=== PATIENT | female | born 1995 | race African-American/Black ===

== ENCOUNTER 2017-11-02 16:36 | Emergency (ER) | payer MEDICAID ==
[~2017-11-02] VITALS: Ht 152.4 cm; Wt 49.9 kg
[2017-11-02 17:24] LABS: BILIRUBIN, URINE NEGATIVE (NEGATIVE); COLOR,URINE PALE YELLOW; GLUCOSE, URINE (UA) NEGATIVE (NEGATIVE); KETONES,URINE NEGATIVE (NEGATIVE); LEUKOCYTE ESTERASE ,URINE 3+ (NEGATIVE); NITRITE,URINE POSITIVE (NEGATIVE); PH,URINE 6 (4.5-8.0); PROTEIN,URINE 2+ (NEGATIVE); UROBILINOGEN,URINE NORMAL MG/DL (0.0-1.0)
[2017-11-02 17:28] LABS: APPEARANCE,URINE SLIGHTLY CLOUDY
--- NOTE | 2017-11-02 17:46 | Emergency Room Report ---
History of Present Illness General Chief Complaint: Female Urogenital Problems Source: Patient Present Illness HPI 22-year-old female patient presents ER complaining of pain with urination for the past 2 days. Patient also reports spotting during this time. Reports that she had a at [facility] a few weeks ago has been spotting since that time. States that they put her on Mirena. Reports that it was her second , first was born at 37 weeks, patient states she had hyperemesis gravidarum and gestational diabetes during , states no longer has diabetes. Denies history of preeclampsia. Denies vomiting or fever Reports using panty liners. Reports that she was told not to use a tampon but did for a few days, states she isn't longer using tampons. Denies passage of clots. Denies discharge. Denies fever, chest pain, shortness breath, vomiting , abdominal pain, flank pain. Denies rash or other acute symptoms. Reports hx of anemia, denies syncopal episodes or dizziness. ports history of anemia, states she is taking iron supplements. Allergies: Coded Allergies: No Known Allergies (Unverified , 11/02/17) Patient History Past Medical History: see triage record Last Menstrual Period: 08/09/17 Now: No : 2 Para: 1 Reviewed Nursing Documentation: PMH: Agreed; PSxH: Agreed Nursing Documentation-PMH Past Medical History: No History, Except For Hx Cardiac Problems: No - ENDOMITRIOSIS Review of Systems All Other Systems: negative except mentioned in HPI Physical Exam Vital Signs Date Time Temp Pulse Resp B/P (MAP) Pulse Ox O2 Delivery O2 Flow Rate FiO2 11/02/17 16:42 98.2 83 16 96/63 100 Room Air 98.2 Sp02 EP Interpretation: reviewed, normal General Appearance: well appearing, no apparent distress, alert, GCS 15, non- toxic Head: normocephalic, atraumatic Eyes: bilateral eye normal inspection, bilateral eye PERRL ENT: hearing grossly normal, normal pharynx, no angioedema, normal voice, uvula midline, moist mucus membranes Neck: full range of motion Respiratory: lungs clear, normal breath sounds, no rhonchi, no respiratory distress, no accessory muscle use, no wheezing, speaking full sentences Cardiovascular #1: regular rate, rhythm, no edema Gastrointestinal: non tender, soft, no mass, non-distended, no guarding, no rebound Genitourinary: no CVA tenderness, cervix normal, ext genitalia/vag normal, no vertebral tenderness, os closed, other - negative cervical motion tenderness, IUD strings noted Musculoskeletal: back normal, digits/nails normal, gait/station normal, normal range of motion, non-tender, no calf tenderness Neurologic: alert, oriented x3, responsive, motor strength/tone normal, sensory intact Psychiatric: mood/affect normal Skin: no rash Medical Decision Making PA Attestation Dr. Alford is my supervising Physician whom patient management has been discussed with. Diagnostic Impression: Primary Impression: Urinary tract infection Additional Impressions: Abnormal uterine bleeding Ovarian cyst ER Course Pt presents to ED c/o dysuria and spotting. DDX considered but are not limited to incomplete , ectopic, UTI, no metritis, fibroids, abnormal uterine bleeding. VITAL SIGNS are WNL, patient is afebrile. blood pressure slightly decreased, we' ll continue to monitor. We'll order labs and fluids. Pelvic exam: cervical os closed, no retained products of conception, no active bleeding, IUD strings identified Ordered CBC, CMP, Type and Screen, UA, UCG, bHCG, IV NS and pelvic US. Tylenol for pain control. ER COURSE: physical examination, no elbow tenderness to palpation, no flank pain, cap refill less than 2 seconds, normal skin turgor, no circumoral pallor Patient resting comfortably, in no acute distress, nontoxic appearing. Patient reports pain symptoms resolved since onset. CBC and CMP unremarkable, no elevation WBCs, no anemia noted UA results positive for nitrites, wbc's and bacteria, likely UTI, will provide antibiotic treatment. Urine negative BetaHCG 17, follow-up with [facility] and have repeat labs and imaging done as necessary, continue to monitor to make sure the hCG levels decrease. Slight elevation may be due to recent history of and . US negative. Rh antibody negative Blood type A positive, instructed patient to followup with [facility] to find out results of blood exam, patient states she does not want to stay to await type and screen results. Coag studies within normal limits. Discussed results with patient. Followup with PCP for further treatment and referral. Informed patient to take Tylenol only for pain symptoms, do not take Motrin/ Ibuprofen. F/u with OBGYN in 48 hours, need serial Beta HCG and US Patient nontoxic appearing, in no acute distress, face timing family on her phone, laughing and smiling, requesting to be discharged. Patient Ok for discharge to home. DISCHARGE: -Rx provided for Keflex -Rx provided for Pyridium, SE turns urine orange. At this time pt. is stable for d/c to home. At this time patient is resting comfortably, in no acute distress, nontoxic appearing, smiling and talking without difficulty. Will provide printed patient care instructions, and any necessary prescriptions. Patient instructed to follow with OBGYN for further treatment and referral as needed. Care plan and follow up instructions have been discussed with the patient prior to discharge. Patient reports understanding and agreement to treatment plan. Patient questions asked and answered. ER precautions given, patient instructed to return to ER immediately for any new or worsening of symptoms. - Please note that this Emergency Department Report was dictated using [employer] representative technology software, occasionally this can lead to erroneous entry secondary to interpretation by the dictation equipment. Labs Test 11/02/17 16:56 11/02/17 17:55 Urine Color Pale yellow Urine Appearance Slightly cloudy Urine pH 6 (4.5-8.0) Urine Specific [place] 1.015 (1.005-1.035) Urine Protein 2+ (NEGATIVE) Urine Glucose (UA) Negative (NEGATIVE) Urine Ketones Negative (NEGATIVE) Urine Occult Blood 4+ (NEGATIVE) Urine Nitrite Positive (NEGATIVE) Urine Bilirubin Negative (NEGATIVE) Urine Urobilinogen Normal MG/DL (0.0-1.0) Urine Leukocyte Esterase 3+ (NEGATIVE) Urine RBC 5-10 /HPF (0 - 2) Urine WBC 20-30 /HPF (0 - 2) Urine Squamous Epithelial Cells Few /LPF (NONE/OCC) Urine Bacteria Moderate /HPF (NONE) Urine HCG, Qualitative Negative (NEGATIVE) White Blood Count 6.3 K/UL (4.8-10.8) Red Blood Count 4.14 M/UL (4.20-5.40) Hemoglobin 12.7 G/DL (12.0-16.0) Hematocrit 37.1 % (37.0-47.0) Mean Corpuscular Volume 90 FL (80-99) Mean Corpuscular Hemoglobin 30.7 PG (27.0-31.0) Mean Corpuscular Hemoglobin Concent 34.3 G/DL (32.0-36.0) Red Cell Distribution Width 11.4 % (11.6-14.8) Platelet Count 197 K/UL (150-450) Mean Platelet Volume 8.3 FL (6.5-10.1) Neutrophils (%) (Auto) 60.6 % (45.0-75.0) Lymphocytes (%) (Auto) 26.1 % (20.0-45.0) Monocytes (%) (Auto) 8.9 % (1.0-10.0) Eosinophils (%) (Auto) 3.2 % (0.0-3.0) Basophils (%) (Auto) 1.3 % (0.0-2.0) Prothrombin Time 10.0 SEC (9.30-11.50) Prothromb Time International Ratio 0.9 (0.9-1.1) Activated Partial Thromboplast Time 29 SEC (23-33) Sodium Level 138 MMOL/L (136-145) Potassium Level 4.0 MMOL/L (3.5-5.1) Chloride Level 104 MMOL/L (98-107) Carbon Dioxide Level 25 MMOL/L (21-32) Anion Gap 9 mmol/L (5-15) Blood Urea Nitrogen 16 mg/dL (7-18) Creatinine 0.7 MG/DL (0.55-1.30) Estimat Glomerular Filtration Rate > 60 mL/min (>60) Glucose Level 83 MG/DL (74-106) Calcium Level 9.3 MG/DL (8.5-10.1) Total Bilirubin 0.3 MG/DL (0.2-1.0) Aspartate Amino Transf (AST/SGOT) 15 U/L (15-37) Alanine Aminotransferase (ALT/SGPT) 19 U/L (12-78) Alkaline Phosphatase 50 U/L (46-116) Total Protein 7.9 G/DL (6.4-8.2) Albumin 4.1 G/DL (3.4-5.0) Globulin 3.8 g/dL Albumin/Globulin Ratio 1.1 (1.0-2.7) Lipase 139 U/L (73-393) CT/MRI/US Diagnostic Results CT/MRI/US Diagnostic Results : Imaging Test Ordered: pelvic US Impression per US aircraft maintenance technician: ovarian cyst IUD noted no torsion no free fluid no other findings Last Vital Signs Date Time Temp Pulse Resp B/P (MAP) Pulse Ox O2 Delivery O2 Flow Rate FiO2 11/02/17 16:42 98.2 83 16 96/63 100 Room Air 98.2 Disposition: HOME, SELF-CARE Condition: Stable Scripts Phenazopyridine Hcl* (PYRIDIUM*) 100 Mg Tablet 100 MG ORAL THREE TIMES A DAY for 3 Days, #9 TAB Prov: Killian Palacios 11/02/17 Cephalexin* (KEFLEX*) 500 Mg Capsule 500 MG ORAL EVERY 12 HOURS, #14 CAP 0 Refills Prov: Killian Palacios 11/02/17 Referrals: NOT CHOSEN IPA/MD,REFERRING (PCP) Patient Instructions: Abnormal Uterine Bleeding, [id number], Ovarian Cyst, Urinary Tract Infection Additional Instructions: Followup with primary care provider and followup with OBGYN for further evaluation and treatment. Drink plenty of fluids. Take medications as directed. Continue to take iron supplements as previously instructed. Pyridium has SE of turning urine orange. Patient questions asked and answered. ER precautions given, patient instructed to return to ER immediately for any new or worsening of symptoms including but not limited to syncope, dizziness, intractable vomiting, chest pain, shortness of breath, intractable abdominal pain. HCG level 17, followup with OBGYN for repeat labs and imaging to monitor HCG levels and make sure they continue to decrease. Contact hospital for blood type results. Killian Palacios Nov 02, 2017 17:46
[2017-11-02 18:02] VITALS: BP 100/66
[2017-11-02 18:20] LABS: ANION GAP 9 mmol/L (5-15); BLOOD UREA NITROGEN 16 mg/dL (7-18); CALCIUM 9.3 MG/DL (8.5-10.1); CARBON DIOXIDE 25 MMOL/L (21-32); CHLORIDE 104 MMOL/L (98-107); CREATININE 0.7 MG/DL (0.55-1.30); SODIUM 138 MMOL/L (136-145)
[2017-11-02 18:22] LABS: BASOPHILS % (AUTO) 1.3 % (0.0-2.0); EOSINOPHILS % (AUTO) 3.2 % (0.0-3.0); HEMATOCRIT 37.1 % (37.0-47.0); HEMOGLOBIN 12.7 G/DL (12.0-16.0); LYMPHOCYTES % (AUTO) 26.1 % (20.0-45.0); MEAN CORPUSCULAR VOLUME 90 FL (80-99); MONOCYTES % (AUTO) 8.9 % (1.0-10.0); NEUTROPHILS % (AUTO) 60.6 % (45.0-75.0); PLATELET COUNT 197 K/UL (150-450); RED BLOOD COUNT 4.14 M/UL (4.20-5.40); RED CELL DISTRIBUTION WIDTH 11.4 % (11.6-14.8); WHITE BLOOD COUNT 6.3 K/UL (4.8-10.8)
[2017-11-02 18:26] LABS: ALANINE AMINOTRANSFERASE 19 U/L (12-78); ALBUMIN 4.1 G/DL (3.4-5.0); ALBUMIN/GLOBULIN RATIO 1.1 (1.0-2.7); ALKALINE PHOSPHATASE 50 U/L (46-116); ASPARTATE AMINO TRANSFERASE 15 U/L (15-37); BILIRUBIN,TOTAL 0.3 MG/DL (0.2-1.0); INR 0.9 (0.9-1.1)
--- NOTE | 2017-11-02 19:20 | Diagnostic Imaging Report ---
EXAM: US Pelvis Complete, Transabdominal US Pelvis, Transvaginal CLINICAL HISTORY: PAIN TECHNIQUE: Real-time transabdominal and transvaginal pelvic ultrasound (complete) with image documentation. Transvaginal imaging was used for better evaluation of the endometrium and adnexa. COMPARISON: No relevant prior studies available. FINDINGS: Uterus/cervix: Uterus 8.3 x 6.7 x 4.6 cm. Endometrium 5 mm. IUD present. No myometrial mass. Right ovary: Right ovary 3.6 x 3.3 x 1.7 cm. Normal blood flow. Left ovary: Left ovary 3.9 x 2.4 x 1.8 cm. Left adnexal 1.9 cm simple cyst/follicle. Normal blood flow. Free fluid: No free fluid. Bladder: Unremarkable as visualized. IMPRESSION: No ovarian torsion.
[2017-11-02] MEDS ORDERED: PHENAZOPYRIDIN100 MG ORAL (19:21)
[2017-11-02] MEDS ORDERED: CEPHALEXIN500 MG ORAL (19:21)
[2017-11-02 20:02] VITALS: BP 100/66
== END 2017-11-02 20:03 | disposition home or self-care (01) ==
LOC: EMR 17:20
DX: N39.0 Urinary tract infection, site not specified (principal); N93.9 Abnormal uterine and vaginal bleeding, unspecified; N83.209 Unspecified ovarian cyst, unspecified side
CPT/HCPCS: 36415; 76830; 76856; 80053; 81003; 81025; 83690; 84702; 85025; 85610; 85730; 86850; 86900; 86901; 87086; 87181; 96360; 99284